=== PATIENT | male | born 1965 | race Caucasian/White ===

== ENCOUNTER → 2018-03-09 15:22 | Outpatient (CLI) | payer OTHER, SELFPAY ==
--- NOTE | 2018-03-09 | XR_ITS ---
XR shoulder LT min 2V HISTORY: ITS.REASON: PAIN, PT FELL FROM LADDER ORDERING PHYSICIAN: Reza Kendall MD PATIENT AGE: 53 years Comparison: None FINDINGS: No fracture or dislocation. No lytic or blastic change. There is normal mineralization. The joint spaces are well-preserved. No significant degenerative/arthritic changes. No erosive changes evident. IMPRESSION: Negative, no acute finding
== END ==
PROVIDERS: PCP Family Medicine; Visit Provider Family Medicine
DX: M25.512 Pain in left shoulder (principal); W19.XXXA Unspecified fall, initial encounter
CPT/HCPCS: 73030

== ENCOUNTER 2018-04-08 06:30 | Outpatient (RCR) | payer OTHER, SELFPAY ==
--- NOTE | 2018-03-23 15:02 | HMH.OTOPEV ---
OT Inpatient Evaluation Rehab OT Outpatient Eval Start: 03/23/18 14:36 Freq: Status: Active Protocol: Document 03/23/18 14:37 TFRY (Rec: 03/23/18 15:02 TFRY [id number]) Electronically Signed By Vanna Rich OT 03/23/18 14:37 Outpatient Therapy Subjective History Subjective History PATIENT IS A 53 YEAR OLD LEFT HANDED MALE REFERRED TO OCCUPATIONAL THERAPY FOR LEFT SHOULDER SPRAIN. PATIENT REPORTS THAT HE FELL OFF A LADDER ON 03/04/18 AND HAS PAIN EVER SINCE. Chief Complaint Pain Symptom Type Ache Sharp Symptoms Relieved By Rest/Positioning Symptoms Aggravated By Physical Activity Prior Functional Limitations None Current Functional Limitations Reaching Lifting Housework Driving Recreation Activity Level of pain today (0-10) 0 Pain scale - at its best (0-10) 0 Pain scale - at its worst (0-10) 4 Shoulder/Elbow Eval Shoulder Objective Measurements Palpation Tenderness tenderness shoulder exam standard left tenderness over the bicipital tendon left shoulder exam standard Shoulder Palpation Findings Tenderness Shoulder ROM Left Shoulder ROM Limitations Pain Shoulder Abduction Active Range of 72 Motion (degrees) Shoulder Abduction Passive Range of 100 Motion (degrees) Shoulder Flexion Active Range of Motion 80 (degrees) Query Text: Shoulder Flexion Passive Range of Motion 130 (degrees) Shoulder External Rotation Active Range 22 of Motion (degrees) Shoulder External Rotation Passive Range 60 of Motion (degrees) Shoulder Internal Rotation Active Range 45 of Motion (degrees) Shoulder Internal Rotation Passive Range 45 of Motion (degrees) pain with active ROM shoulder exam left standard pain with passive ROM shoulder exam left standard decreased ROM shoulder exam standard left Shoulder MMT Shoulder Abduction Strength Grade 3- Fair- Shoulder Flexion Strength Grade 3- Fair- Shoulder Horizontal Abduction Strength 2+ Poor+ Grade Shoulder Horizontal Adduction Strength 2+ Poor+ Grade Shoulder External Rotation Strength 2+ Poor+ Grade Shoulder Internal Rotation Strength 2+ Poor+ Grade Elbow Objective Measurements OT Outpa
== END 2018-04-08 06:31 | disposition home or self-care (01) ==
LOC: OT 06:30
PROVIDERS: Visit Provider Family Medicine
DX: S43.402A Unspecified sprain of left shoulder joint, initial encounter (principal)
CPT/HCPCS: 97014; 97033; 97110; 97165; G0283

== ENCOUNTER → 2021-05-20 11:55 | Outpatient (CLI) | payer BC, SELFPAY ==
[2021-05-20 13:07] LABS: Adenovirus,PCR Not Detected (NotDetected); Bordetella Pertussis Not Detected (NotDetected); Chlamydophila Pneumoniae, PCR Not Detected (NotDetected); Coronavirus 19, PCR Not Detected (NotDetected); Coronavirus 229E Not Detected (NotDetected); Coronavirus NL63 Not Detected (NotDetected); Coronavirus OC43 Not Detected (NotDetected); Coronovirus HKU1,PCR Not Detected (NotDetected); Influenza A, PCR Not Detected (NotDetected); Influenza AH1, 2009 Not Detected (NotDetected); Influenza AH1, PCR Not Detected (NotDetected); Influenza AH3,PCR Not Detected (NotDetected); Influenza B, PCR Not Detected (NotDetected); Mycoplasma Pneumoniae, PCR Not Detected (NotDetected); Parainfluenza 1, PCR Not Detected (NotDetected); Parainfluenza 2, PCR Not Detected (NotDetected); Parainfluenza 3, PCR Not Detected (NotDetected); Parainfluenza 4, PCR Not Detected (NotDetected); Respiratory Syncytial Virus Not Detected (NotDetected); Rhinovirus/Enterovirus Not Detected (NotDetected)
[2021-05-20 13:14] LABS: Basophils # 0.1 K/mm3 (0-0.2); Basophils % 0.8 % (0.1-2.0); Eosinophils # 0.1 K/mm3 (0.0-0.4); Hematocrit 47.7 % (42.0-52.0); Hemoglobin 16.6 g/dL (14.1-18.0); Lymphocytes # 1.5 K/mm3 (0.7-4.5); Lymphocytes % 21.5 % (10-50); Mean Corpuscular HGB Conc 34.7 g/dL (31.8-35.4); Mean Corpuscular Hemoglobin 30.2 pg (27.0-31.2); Mean Corpuscular Volume 87.1 fl (80-94); Mean Platelet Volume 9.3 fl (7.4-10.4); Monocytes # 0.5 K/mm3 (0.1-1.0); Monocytes % 7.1 % (1.7-9.3); Neutrophils # 4.6 K/mm3 (1.8-7.8); Neutrophils % 68.7 % (37.0-80.0); Platelet Count 176 K/mm3 (142-424); Red Blood Count 5.48 M/mm3 (4.60-6.20); Red Cell Distribution Width 12.5 % (11.5-17.5); White Blood Count 6.8 K/mm3 (4.8-10.8)
[2021-05-20 15:46] LABS: Human Metapneumovirus Detected (NotDetected)
== END ==
PROVIDERS: PCP Family Medicine; Visit Provider Family Medicine
DX: Z20.822 Contact with and (suspected) exposure to COVID-19 (principal); B97.81 Human metapneumovirus as the cause of diseases classified elsewhere
CPT/HCPCS: 36415; 85025; 87581; 87632; 87798; C9803; U0003; U0005